=== PATIENT | male | born 2000 | race Two or more races ===

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

== ENCOUNTER 2019-11-25 09:27 | Emergency (ER) | payer MEDICAID ==
[~2019-11-25] VITALS: Ht 172.7 cm; Wt 61.4 kg
[~2019-11-25 09:27] MED LIST: ONDA8TAB9 PO
[2019-11-25] MEDS ORDERED: diphenhydrAMINE 50 mg/ml inj IV ONE (09:45)
[2019-11-25] MEDS ORDERED: ondansetron/PF 4mg/2ml inj IV ONE (09:45)
[2019-11-25] MEDS ORDERED: normal saline 1000ML IV soln IVB ONE (09:45)
[2019-11-25 10:04] LABS: BASOPHILS % (AUTO) 0.3 % (0-1); EOSINOPHILS % (AUTO) 0.4 % (0-6); HEMATOCRIT 46.4 % (42.0-52.0); HEMOGLOBIN 15.6 g/dl (14.0-17.9); LYMPHOCYTES # (AUTO) 1.1 X10'3 (1.1-4.8); LYMPHOCYTES % (AUTO) 14.8 % (21-51); MEAN CORPUSCULAR HEMOGLOBIN 30.1 PG (27.0-31.0); MEAN CORPUSCULAR HGB CONC 33.7 g/dL (33.0-36.5); MEAN CORPUSCULAR VOLUME 89.2 FL (78-98); MEAN PLATELET VOLUME 8.7 FL (7.4-10.4); MONOCYTES # (AUTO) 0.5 X10'3 (0-0.9); MONOCYTES % (AUTO) 6.3 % (2-12); NEUTROPHILS # (AUTO) 5.7 X10'3 (1.8-7.7); NEUTROPHILS % (AUTO) 78.2 % (42-75); PLATELET COUNT 221 X10'3 (140-440); RED CELL DISTRIBUTION WIDTH 12.4 % (11.5-14.5); WHITE BLOOD COUNT 7.3 X10'3 (4.5-11.0)
[2019-11-25 10:23] LABS: ALANINE AMINOTRANSFERASE 22 U/L (12-78); ALBUMIN 4.5 G/DL (3.4-5.0); ALBUMIN/GLOBULIN RATIO 1.3 (1.1-1.5); ALKALINE PHOSPHATASE 104 IU/L (46-116); ANION GAP 14 (8-16); ASPARTATE AMINO TRANSFERASE 21 U/L (10-37); BILIRUBIN,TOTAL 2.9 MG/DL (0.1-1.0); BLOOD UREA NITROGEN 13 MG/DL (7-18); BUN/CREATININE RATIO 14.4 (5.4-32.0); CALCIUM 9.1 MG/DL (8.5-10.1); CHLORIDE 102 MMOL/L (99-107); GLUCOSE 107 MG/DL (70-104); LIPASE 67 U/L (73-393); POTASSIUM 3.6 MMOL/L (3.5-5.1); SODIUM 142 MMOL/L (135-145); TOTAL CARBON DIOXIDE 26.5 MMOL/L (24-32); eGFR > 90 ML/MIN
[2019-11-25 11:28] VITALS: BP 112/75
== END 2019-11-25 11:31 | disposition home or self-care (01) ==
LOC: ER 09:28
DX: R11.2 Nausea with vomiting, unspecified (principal); F12.10 Cannabis abuse, uncomplicated; Z90.49 Acquired absence of other specified parts of digestive tract; Z79.899 Other long term (current) drug therapy
CPT/HCPCS: 36415; 80053; 83690; 85025; 96361; 96374; 96375; 99284; J1200; J2405; J7030

== ENCOUNTER 2019-11-27 05:28 | Emergency (ER) | payer MEDICAID ==
[~2019-11-27] VITALS: Ht 172.7 cm; Wt 61.4 kg
[2019-11-27] MEDS ORDERED: haloperidol lactate 5mg/ml inj IM ONE (05:40)
[2019-11-27] MEDS ORDERED: diphenhydrAMINE 50 mg/ml inj IM ONE (05:40)
[2019-11-27] MEDS ORDERED: ondansetron 4mg rapidly disintigrating tab PO ONE (05:40)
[2019-11-27] MEDS ORDERED: ONDA4TAB6 PO (05:49)
[2019-11-27 07:12] VITALS: BP 108/71
== END 2019-11-27 07:28 | disposition home or self-care (01) ==
LOC: ER 05:28
DX: R11.15 Cyclical vomiting syndrome unrelated to migraine (principal); R11.2 Nausea with vomiting, unspecified; R10.84 Generalized abdominal pain; Z90.89 Acquired absence of other organs; Z79.899 Other long term (current) drug therapy
CPT/HCPCS: 96372; 99284; J1200; J1630

== ENCOUNTER 2021-07-08 11:46 | Emergency (ER) | payer MEDICAID, OTHER ==
[~2021-07-08] VITALS: Ht 172.7 cm; Wt 72.7 kg
[~2021-07-08 11:46] MED LIST changes: +ONDA4TAB6 PO
[2021-07-08 11:48] VITALS: BP 122/73
== END 2021-07-08 13:43 | disposition home or self-care (01) ==
LOC: ER 11:46
DX: S61.211D Laceration without foreign body of left index finger without damage to nail, subsequent encounter (principal); Z88.8 Allergy status to other drugs, medicaments and biological substances; W45.8XXD Other foreign body or object entering through skin, subsequent encounter
CPT/HCPCS: 12001; 73140; 99283

== ENCOUNTER 2023-08-09 04:53 | Emergency (ER) | payer MEDICAID, OTHER, SELFPAY ==
[~2023-08-09] VITALS: Ht 172.7 cm; Wt 73.5 kg
[2023-08-09 05:04] VITALS: PULSE 92
[2023-08-09] MEDS ORDERED: NO HOME MEDS (05:07)
[2023-08-09 06:51] LABS: BILIRUBIN,URINE MODERATE (Neg); CLARITY,URINE CLEAR (Clear); COLOR,URINE YELLOW (Yellow); GLUCOSE, URINE NEGATIVE (Neg); KETONES,URINE >=80 mg/dl (Neg); LEUKOCYTE ESTERASE ,URINE NEGATIVE (Neg); NITRITES, URINE NEGATIVE (Neg); OCCULT BLOOD,URINE NEGATIVE (Neg); PROTEIN,URINE 30 mg/dl (Neg)
[2023-08-09 06:54] LABS: UA COLLECTION TYPE CLN CATCH MIDSTREAM
[2023-08-09 06:55] LABS: BACTERIA,URINE NONE SEEN /HPF (Neg); MUCUS STRANDS FEW /LPF (Neg); RBC,URINE 0-2 /HPF (0-2); SQUAMOUS EPITHELIAL CELL,UR NONE SEEN /LPF (FEW); WBC,URINE 0-4 /HPF (0-4)
[2023-08-09 07:58] LABS: BASOPHILS % (AUTO) 0.2 % (0-1); EOSINOPHILS % (AUTO) 0.4 % (0-6); HEMOGLOBIN 16.5 g/dl (14.0-17.9); LYMPHOCYTES # (AUTO) 0.7 X10'3 (1.1-4.8); LYMPHOCYTES % (AUTO) 7.6 % (21-51); MEAN CORPUSCULAR HEMOGLOBIN 30.3 PG (27.0-31.0); MEAN CORPUSCULAR HGB CONC 34.3 g/dL (33.0-36.5); MEAN CORPUSCULAR VOLUME 88.4 FL (78-98); MEAN PLATELET VOLUME 9.5 FL (7.4-10.4); MONOCYTES # (AUTO) 0.7 X10'3 (0-0.9); MONOCYTES % (AUTO) 7.9 % (2-12); NEUTROPHILS # (AUTO) 7.4 X10'3 (1.8-7.7); NEUTROPHILS % (AUTO) 83.9 % (42-75); PLATELET COUNT 192 X10'3 (140-440); RED BLOOD COUNT 5.43 X10'6 (4.70-6.10); RED CELL DISTRIBUTION WIDTH 12.9 % (11.5-14.5); WHITE BLOOD COUNT 8.8 X10'3 (4.5-11.0)
[2023-08-09 08:13] LABS: ALANINE AMINOTRANSFERASE 34 U/L (12-78); ALBUMIN 4.2 G/DL (3.4-5.0); ALBUMIN/GLOBULIN RATIO 1.1 (1.1-1.5); ALKALINE PHOSPHATASE 110 IU/L (46-116); ANION GAP 17 (8-16); ASPARTATE AMINO TRANSFERASE 31 U/L (10-37); BILIRUBIN,TOTAL 1.4 MG/DL (0.1-1.0); BLOOD UREA NITROGEN 13 MG/DL (7-18); BUN/CREATININE RATIO 13.3 (10.0-20.0); CALCIUM 9.4 MG/DL (8.5-10.1); CHLORIDE 101 MMOL/L (99-107); CREATININE 0.98 MG/DL (0.60-1.10); GLUCOSE 100 MG/DL (70-104); LIPASE 33 U/L (16-77); POTASSIUM 3.6 MMOL/L (3.5-5.1); SODIUM 138 MMOL/L (135-145); TOTAL CARBON DIOXIDE 19.8 MMOL/L (24-32); TOTAL PROTEIN 8.1 G/DL (6.4-8.2); eCRCL 111 ML/MIN; eGFR > 90 ML/MIN
[2023-08-09] MEDS: ondansetron 4mg rapidly disintigrating tab PO ONE (09:39)
[2023-08-09] MEDS ORDERED: ONDA8TAB13 PO (09:47)
[2023-08-09 10:08] VITALS: BP 136/70; RESP 16; TEMP 98.7; O2SAT 96
== END 2023-08-09 10:11 | disposition home or self-care (01) ==
LOC: ER 04:54
DX: R11.2 Nausea with vomiting, unspecified (principal); R19.7 Diarrhea, unspecified; Z88.8 Allergy status to other drugs, medicaments and biological substances; Z98.890 Other specified postprocedural states
CPT/HCPCS: 36415; 80053; 81001; 83690; 85025; 99283

== ENCOUNTER 2024-04-27 03:28 | Emergency (ER) | payer MEDICAID ==
[~2024-04-27] VITALS: Ht 172.7 cm; Wt 74.1 kg
[~2024-04-27 03:28] MED LIST changes: +NO HOME MEDS; +ONDA-245 PO; -ONDA4TAB6 PO; -ONDA8TAB9 PO
[2024-04-27 03:32] VITALS: BP 126/92; PULSE 90; RESP 18; TEMP 98.1; O2SAT 97
== END 2024-04-27 06:02 | disposition left against medical advice (07) ==
LOC: ER 03:29
DX: K92.0 Hematemesis (principal); R19.7 Diarrhea, unspecified; Z88.8 Allergy status to other drugs, medicaments and biological substances; Z53.21 Procedure and treatment not carried out due to patient leaving prior to being seen by health care provider
CPT/HCPCS: 85025